=== PATIENT | female | born 1950 | race Caucasian/White ===

== ENCOUNTER 2022-04-05 20:48 | Inpatient (IN) | payer OTHER, SELFPAY ==
[2022-04-05 21:30] VITALS: BP 112/67; PULSE 74; RESP 18; TEMP 36.6; O2SAT 98
--- NOTE | 2022-04-05 23:37 | PC.ADMIT ---
Admitted these 71 year old female per stretcher accompanied by ambulance staff w/ a history of major depression/PTSD who presented w/ uncomplicated sigmoid diverticulitis and major depression w/questionable symptoms of psychosis.Upon arrival at the unit at21:10h pt. is oriented to the unit, room and staff.Pt. signed the CV. At the beginning of admission process, Pt. is alert and oriented to person,date, place and time. Pt. signed the papers.In the middle of admission process pt. is beginning to be impatient,irritable and keep in saying 'I want my mother here, I want to ho home. Patient became suspicious and paranoid. Said, I don't want to sleep alone in my room, I'm claustrophobic.Pt. is easily distracted and confused at times.Pt. skin in warm and intact, no skin tears or bruises noted and no edema noted. Ptient has her own teeth and wears eyeglasses at baseline. Pt. said she is independent in ADL'S and independent in ambulation. pt. denies SI and feels safe in the unit.Pt. also denies pain, said she is not sleeping for days, offered prn Trazodone but pt. refused.pT. Has past medical hx. 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 Paty Borja and GREG Byers inform of admission. Orders placed by Dr Paty Borja.We'll continue to monitor the patient.
[2022-04-06 00:28] VITALS: BMI 21.8
[2022-04-06] MEDS: Acetaminophen 325 MG TABLET 650 MG PO (01:16)
[2022-04-06 07:45] VITALS: BP 119/58; PULSE 73; RESP 16; TEMP 36.7; O2SAT 98
[2022-04-06] MEDS: Cholecalciferol (Vitamin D3) 10 MCG TABLET 20 MCG PO (07:58)
[2022-04-06] MEDS: Aspirin Enteric Coated 81 MG TABLET.DR PO (07:58)
[2022-04-06] MEDS: levoFLOXacin 500 MG TABLET PO (07:59)
[2022-04-06] MEDS: metroNIDAZOLE 500 MG TABLET PO ×3 (07:59→19:55)
[2022-04-06] MEDS: QUEtiapine Fumarate 25 MG TABLET PO ×4 (08:00→19:55)
[2022-04-06] MEDS: OLANZapine 5 MG TABLET PO (08:00)
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
--- NOTE | 2022-04-06 15:08 | HO.PSYCHPN ---
Subjective Subjective Reason For Visit: Depression, PTSD, symptoms of psychosis Diagnostics Vital Signs (24Hr): Vital Signs - 24 hr 04/05/22 21:30 04/06/22 07:45 Temperature 97.8 F 98.0 F Pulse Rate 74 73 Respiratory Rate 18 16 Blood Pressure 112/67 119/58 L Pulse Oximetry 98 98 Oxygen Delivery Method Room Air Room Air BMI result Body Mass Index 21.8 Medications Medications Current Medications Acetaminophen (Acetaminophen 325 Mg Tablet) 650 mg PO Q6H PRN PRN Reason: Headache/Pain Mild Scale (1-3) Last Admin: 04/06/22 01:16 Dose: 650 mg Al Hydroxide/Mg Hydroxide (Magnesium Hydrox/Alum Hydrox 30 Ml Oral.Susp) 30 ml PO Q6H PRN PRN Reason: Heartburn/Nausea Aspirin (Aspirin Enteric Coated 81 Mg Tablet.Dr) 81 mg PO DAILY [facility] Last Admin: 04/06/22 07:58 Dose: 81 mg Atorvastatin Calcium (Atorvastatin Calcium 80 Mg Tablet) 80 mg PO DAILY [facility] Last Admin: 04/06/22 08:00 Dose: Not Given Docusate Sodium (Docusate Sodium 100 Mg Capsule) 100 mg PO BID [facility] Last Admin: 04/06/22 08:01 Dose: Not Given Levofloxacin (Levofloxacin 500 Mg Tablet) 500 mg PO DAILY [facility] Last Admin: 04/06/22 07:59 Dose: 500 mg Lorazepam (Lorazepam 0.5 Mg Tablet) 0.5 mg PO Q6H PRN PRN Reason: Anxiety Magnesium Hydroxide (Milk Of Magnesia 30 Ml Oral.Susp) 30 ml PO DAILY PRN PRN Reason: Constipation Metronidazole (Metronidazole 500 Mg Tablet) 500 mg PO TID [facility] Last Admin: 04/06/22 14:31 Dose: 500 mg Olanzapine (Olanzapine 5 Mg Tablet) 5 mg PO DAILY [facility] Last Admin: 04/06/22 08:00 Dose: 5 mg Polyethylene Glycol (Polyethylene Glycol 3350 17 Gm Powd.Pack) 17 gm PO DAILY [facility] Last Admin: 04/06/22 08:01 Dose: Not Given Quetiapine Fumarate (Quetiapine Fumarate 25 Mg Tablet) 25 mg PO TID [facility] Last Admin: 04/06/22 14:31 Dose: 25 mg Senna (Sennosides 8.6 Mg Tablet) 8.6 mg PO BEDTIME [facility] Trazodone HCl (Trazodone Hcl 50 Mg Tablet) 50 mg PO BEDTIME PRN PRN Reason: Insomnia Vitamin D (Cholecalciferol (Vitamin D3) 10 Mcg Tablet) 20 mcg PO DAILY [facility] Last Admin: 04/06/22 07:58 Dose: 20 mcg Allergies Allergies Allergy/AdvReac Type Severity Reaction Status Date / Time No Known Allergies Allergy Verified 04/05/22 21:25 Assessment & Plan I spent minutes with the patient and/or on the patient floor today, greater than?50% of which was spent counseling/coordinating care. Patient educated on: medication risk/benefits
[2022-04-06 17:12] VITALS: BP 145/68; PULSE 74
--- NOTE | 2022-04-06 17:20 | ECG_ITS ---
Test Reason : Chest Pain Blood Pressure : / mmHG Vent. Rate : 073 BPM Atrial Rate : 073 BPM P-R Int : 178 ms QRS Dur : 068 ms QT Int : 398 ms P-R-T Axes : 073 064 063 degrees QTc Int : 438 ms Normal sinus rhythm Normal ECG No previous ECGs available Referred By: Shannan Kaba Electronically Signed By:QUINCY LEIVA
[2022-04-06 18:00] VITALS: BP 110/50; PULSE 81; RESP 16; TEMP 36.3; O2SAT 98
[2022-04-06] MEDS: LORazepam 0.5 MG TABLET PO (18:20)
[2022-04-06] MEDS: Docusate Sodium 100 MG CAPSULE PO (19:55)
[2022-04-06] MEDS: Sennosides 8.6 MG TABLET PO (19:55)
--- NOTE | 2022-04-06 20:06 | PC.NURSE ---
Late entry for 17:20-- Pt c/o chest pain in late evening. call center operations manager Shannan Kaba notified. STAT EKG ordered and completed. EKG WNL. VSS. call center operations manager ordered lorazepam and Seroquel. Administered and positive effect. Patient reported feeling less anxious and like those pills helped me shortly while after. Patient appears less anxious as evening continued and observed napping and no distress noted.
[2022-04-07] MEDS: QUEtiapine Fumarate 25 MG TABLET PO ×4 (00:37→20:12)
[2022-04-07] MEDS: LORazepam 0.5 MG TABLET PO (00:37)
[2022-04-07 07:00] VITALS: BMI 21.6
[2022-04-07 09:00] VITALS: BP 112/58; PULSE 81; RESP 16; TEMP 36.2; O2SAT 98
[2022-04-07] MEDS: levoFLOXacin 500 MG TABLET PO (09:36)
[2022-04-07] MEDS: Cholecalciferol (Vitamin D3) 10 MCG TABLET 20 MCG PO (09:36)
[2022-04-07] MEDS: metroNIDAZOLE 500 MG TABLET PO ×3 (09:36→20:11)
[2022-04-07] MEDS: Aspirin Enteric Coated 81 MG TABLET.DR PO (09:36)
[2022-04-07] MEDS: OLANZapine 5 MG TABLET PO (09:36)
[2022-04-07] MEDS: Docusate Sodium 100 MG CAPSULE PO ×2 (09:37→20:11)
[2022-04-07] MEDS: Atorvastatin Calcium 80 MG TABLET PO (09:37)
[2022-04-07] MEDS: polyethylene glycoL 3350 17 GM POWD.PACK PO (09:40)
--- NOTE | 2022-04-07 13:42 | P.PNPSI_ITS ---
Subjective Subjective Date of Service: 04/07/22 Reason For Visit: Depression, PTSD, symptoms of psychosis Subjective Notes: Conditional Voluntary Interim History: The nursing staff reported the patient was very somatic and she was complaining of nausea and vomiting and chest pain so she had an EKG last night and it was negative she slept after taking all the PRNs. The social security assessor tried to contact her daughter but she could not find her. She contact her therapist [employer] and the therapist reported that she has been more anxious for the last 3 months with panic attacks and she has called several times 911. She also has lost weight. According to the social security assessor, her family was thinking of placing her eventuality in assisted living facility. On interview the patient denies new symptoms she looks anxious and depressed I offer her antidepressants and she was still slightly reluctant to start any medications, we will start with Paxil 10 mg p.o. daily. We will try to get more collateral information Mental Status Exam Mental Status Exam Patient Appearance: Well Grooomed Patient Orientation: Person and Situation Level of Consciousness: Awake Patient Behavior: Cooperative Mood Description: Constricted Affect Description: Constricted Patient Cognition Impaired: Yes Ability to Follow Directions: Good Speech Pattern: Clear Memory Description: Intact Hallucinations: None Delusions: Not Present Thought Process: Distracted Thought Content: positive for [place] Judgement: Fair Diagnostics Vital Signs (24Hr): Vital Signs - 24 hr 04/06/22 17:12 04/06/22 18:00 04/07/22 09:00 Temperature 97.3 F 97.1 F Pulse Rate 74 81 81 Respiratory Rate 16 16 Blood Pressure 145/68 H 110/50 L 112/58 L Pulse Oximetry 98 98 Oxygen Delivery Method Room Air Room Air BMI result Body Mass Index 21.6 Medications Medications Current Medications Acetaminophen (Acetaminophen 325 Mg Tablet) 650 mg PO Q6H PRN PRN Reason: Headache/Pain Mild Scale (1-3) Last Admin: 04/06/22 01:16 Dose: 650 mg Al Hydroxide/Mg Hydroxide (Magnesium Hydrox/Alum Hydrox 30 Ml Oral.Susp) 30 ml PO Q6H PRN PRN Reason: Heartburn/Nausea Aspirin (Aspirin Enteric Coated 81 Mg Tablet.) 81 mg PO DAILY [facility] Last Admin: 04/07/22 09:36 Dose: 81 mg Atorvastatin Calcium (Atorvastatin Calcium 80 Mg Tablet) 80 mg PO DAILY [facility] Last Admin: 09/15/22 09:37 Dose: 80 mg Docusate Sodium (Docusate Sodium 100 Mg Capsule) 100 mg PO BID [facility] Last Admin: 04/07/22 09:37 Dose: 100 mg Levofloxacin (Levofloxacin 500 Mg Tablet) 500 mg PO DAILY [facility] Last Admin: 04/07/22 09:36 Dose: 500 mg Lorazepam (Lorazepam 0.5 Mg Tablet) 0.5 mg PO Q6H PRN PRN Reason: Anxiety Last Admin: 04/07/22 00:37 Dose: 0.5 mg Magnesium Hydroxide (Milk Of Magnesia 30 Ml Oral.Susp) 30 ml PO DAILY PRN PRN Reason: Constipation Metronidazole (Metronidazole 500 Mg Tablet) 500 mg PO TID [facility] Last Admin: 04/07/22 09:36 Dose: 500 mg Olanzapine (Olanzapine 5 Mg Tablet) 5 mg PO DAILY [facility] Last Admin: 04/07/22 09:36 Dose: 5 mg Polyethylene Glycol (Polyethylene Glycol 3350 17 Gm Powd.Pack) 17 gm PO DAILY [facility] Last Admin: 04/07/22 09:40 Dose: 17 gm Quetiapine Fumarate (Quetiapine Fumarate 25 Mg Tablet) 25 mg PO TID [facility] Last Admin: 04/07/22 09:36 Dose: 25 mg Quetiapine Fumarate (Quetiapine Fumarate 25 Mg Tablet) 25 mg PO Q6H PRN PRN Reason: agitation Last Admin: 04/07/22 00:37 Dose: 25 mg Senna (Sennosides 8.6 Mg Tablet) 8.6 mg PO BEDTIME [facility] Last Admin: 04/06/22 19:55 Dose: 8.6 mg Trazodone HCl (Trazodone Hcl 50 Mg Tablet) 50 mg PO BEDTIME PRN PRN Reason: Insomnia Vitamin D (Cholecalciferol (Vitamin D3) 10 Mcg Tablet) 20 mcg PO DAILY [facility] Last Admin: 04/07/22 09:36 Dose: 20 mcg Allergies Allergies Allergy/AdvReac Type Severity Reaction Status Date / Time No Known Allergies Allergy Verified 04/05/22 21:25 Assessment & Plan Assessment & Plan (1) Major depressive disorder: Status: Acute Code(s): F32.9 - Major depressive disorder, single episode, unspecified (2) Posttraumatic stress disorder: Status: Acute Code(s): F43.10 - Post-traumatic stress disorder, unspecified (3) Dementia: Status: Acute Code(s): F03.90 - Unspecified dementia without behavioral disturbance (4) Delirium: Status: Acute Code(s): R41.0 - Disorientation, unspecified Plan The patient is an elderly female with a past history of major depressive disorder, PTSD and most likely dementia, referred from [facility] after being admitted medically for diverticulitis, currently on antibiotics. She presented with delirium and psychotic symptoms. Plan 1. Gather collateral information. 2. Continue antibiotics such as Levaquin. 3. Continue Seroquel and Zyprexa as prescribed by [facility]. 4. We will consider the addition of an antidepressant as soon as we get records from [facility]. At this moment we will start with Paxil 10 mg p.o. daily I spent ____20__ minutes with the patient and/or on the patient floor today, greater than?50% of which was spent counseling/coordinating care. Reason for contiued inpatient stay Substantial Risk for: inability to function, rapid decompensation and med/psych decompensation
[2022-04-07 18:00] VITALS: PULSE 83; RESP 83; TEMP 36.6; O2SAT 100
[2022-04-07] MEDS: Sennosides 8.6 MG TABLET PO (20:12)
[2022-04-08 07:30] VITALS: BP 108/66; PULSE 71; RESP 16; TEMP 37.1; O2SAT 97
[2022-04-08] MEDS: Cholecalciferol (Vitamin D3) 10 MCG TABLET 20 MCG PO (08:10)
[2022-04-08] MEDS: Aspirin Enteric Coated 81 MG TABLET.DR PO (08:10)
[2022-04-08] MEDS: polyethylene glycoL 3350 17 GM POWD.PACK PO (08:10)
[2022-04-08] MEDS: Atorvastatin Calcium 80 MG TABLET PO (08:11)
[2022-04-08] MEDS: QUEtiapine Fumarate 25 MG TABLET PO ×4 (08:11→22:27)
[2022-04-08] MEDS: OLANZapine 5 MG TABLET PO (08:11)
[2022-04-08] MEDS: PARoxetine HCL 10 MG TABLET PO (08:11)
[2022-04-08] MEDS: levoFLOXacin 500 MG TABLET PO (08:11)
[2022-04-08] MEDS: Docusate Sodium 100 MG CAPSULE PO ×2 (08:11→20:38)
[2022-04-08] MEDS: metroNIDAZOLE 500 MG TABLET PO ×3 (08:11→20:37)
--- NOTE | 2022-04-08 08:26 | HO.PSYCHPN ---
Subjective Subjective Date of Service: 04/08/22 Reason For Visit: Depression, PTSD, symptoms of psychosis Subjective Notes: Conditional Voluntary Interim History: the nursing staff reported the patient has been somatically preoccupied, complaining of chest pain and anxiety. The social science professor reported that she called her daughter and they have been looking for a suitable facility for long-term. She does not have a healthcare proxy but probably there is some records on [facility]. She has refused p.r.n. Ativan. The nursing staff reported that she complained of having food stuck on her ear. According to the occupational therapist her [place] is 14/30 and his Shreyas test is 3.6. Her daughter has called us on wanted to discuss about discharge planning. Mental Status Exam Mental Status Exam Patient Appearance: Well Grooomed Patient Orientation: Person and Situation Level of Consciousness: Awake Patient Behavior: Cooperative Mood Description: Constricted Affect Description: Withdrawn Patient Cognition Impaired: Yes Ability to Follow Directions: Good Speech Pattern: Clear Hallucinations: None Delusions: Not Present Thought Process: Distracted Thought Content: positive for [place] Judgement: Fair Diagnostics Vital Signs (24Hr): Vital Signs - 24 hr 04/07/22 09:00 04/07/22 18:00 Temperature 97.1 F 97.8 F Pulse Rate 81 83 Respiratory Rate 16 83 H Blood Pressure 112/58 L Pulse Oximetry 98 100 Oxygen Delivery Method Room Air Room Air BMI result Body Mass Index 21.6 Medications Medications Current Medications Acetaminophen (Acetaminophen 325 Mg Tablet) 650 mg PO Q6H PRN PRN Reason: Headache/Pain Mild Scale (1-3) Last Admin: 04/06/22 01:16 Dose: 650 mg Al Hydroxide/Mg Hydroxide (Magnesium Hydrox/Alum Hydrox 30 Ml Oral.Susp) 30 ml PO Q6H PRN PRN Reason: Heartburn/Nausea Aspirin (Aspirin Enteric Coated 81 Mg Tablet.) 81 mg PO DAILY [facility] Last Admin: 04/08/22 08:10 Dose: 81 mg Atorvastatin Calcium (Atorvastatin Calcium 80 Mg Tablet) 80 mg PO DAILY [facility] Last Admin: 04/08/22 08:11 Dose: 80 mg Docusate Sodium (Docusate Sodium 100 Mg Capsule) 100 mg PO BID [facility] Last Admin: 04/08/22 08:11 Dose: 100 mg Levofloxacin (Levofloxacin 500 Mg Tablet) 500 mg PO DAILY [facility] Last Admin: 04/08/22 08:11 Dose: 500 mg Lorazepam (Lorazepam 0.5 Mg Tablet) 0.5 mg PO Q6H PRN PRN Reason: Anxiety Last Admin: 04/07/22 00:37 Dose: 0.5 mg Magnesium Hydroxide (Milk Of Magnesia 30 Ml Oral.Susp) 30 ml PO DAILY PRN PRN Reason: Constipation Metronidazole (Metronidazole 500 Mg Tablet) 500 mg PO TID [facility] Last Admin: 04/08/22 08:11 Dose: 500 mg Olanzapine (Olanzapine 5 Mg Tablet) 5 mg PO DAILY [facility] Last Admin: 04/08/22 08:11 Dose: 5 mg Paroxetine HCl (Paroxetine Hcl 10 Mg Tablet) 10 mg PO DAILY [facility] Last Admin: 04/08/22 08:11 Dose: 10 mg Polyethylene Glycol (Polyethylene Glycol 3350 17 Gm Powd.Pack) 17 gm PO DAILY [facility] Last Admin: 04/08/22 08:10 Dose: 17 gm Quetiapine Fumarate (Quetiapine Fumarate 25 Mg Tablet) 25 mg PO TID [facility] Last Admin: 04/08/22 08:11 Dose: 25 mg Quetiapine Fumarate (Quetiapine Fumarate 25 Mg Tablet) 25 mg PO Q6H PRN PRN Reason: agitation Last Admin: 04/07/22 00:37 Dose: 25 mg Senna (Sennosides 8.6 Mg Tablet) 8.6 mg PO BEDTIME [facility] Last Admin: 04/07/22 20:12 Dose: 8.6 mg Trazodone HCl (Trazodone Hcl 50 Mg Tablet) 50 mg PO BEDTIME PRN PRN Reason: Insomnia Vitamin D (Cholecalciferol (Vitamin D3) 10 Mcg Tablet) 20 mcg PO DAILY [facility] Last Admin: 04/08/22 08:10 Dose: 20 mcg Allergies Allergies Allergy/AdvReac Type Severity Reaction Status Date / Time No Known Allergies Allergy Verified 04/05/22 21:25 Assessment & Plan Assessment & Plan (1) Major depressive disorder: Status: Acute Code(s): F32.9 - Major depressive disorder, single episode, unspecified (2) Posttraumatic stress disorder: Status: Acute Code(s): F43.10 - Post-traumatic stress disorder, unspecified (3) Dementia: Status: Acute Code(s): F03.90 - Unspecified dementia without behavioral disturbance (4) Delirium: Status: Acute Code(s): R41.0 - Disorientation, unspecified Plan The patient is an elderly female with a past history of major depressive disorder, PTSD and most likely dementia, referred from [facility] after being admitted medically for diverticulitis, currently on antibiotics. She presented with delirium and psychotic symptoms. Plan 1. Gather collateral information. 2. Continue antibiotics such as Levaquin. 3. Continue Seroquel and Zyprexa as prescribed by [facility]. 4. We will consider the addition of an antidepressant as soon as we get records from [facility]. At this moment we will start with Paxil 10 mg p.o. daily I spent __20____ minutes with the patient and/or on the patient floor today, greater than?50% of which was spent counseling/coordinating care. Reason for contiued inpatient stay Substantial Risk for: inability to function, rapid decompensation and med/psych decompensation
[2022-04-08 09:15] VITALS: BP 122/59; PULSE 82; RESP 18; TEMP 36.3; O2SAT 98
[2022-04-08] MEDS: LORazepam 0.5 MG TABLET PO (09:27)
[2022-04-08 18:00] VITALS: BP 130/63; PULSE 83; RESP 16; TEMP 37.1; O2SAT 98
[2022-04-08] MEDS: Milk of Magnesia 30 ML ORAL.SUSP PO (18:33)
[2022-04-08] MEDS: Sennosides 8.6 MG TABLET PO (20:37)
[2022-04-08] MEDS: traZODone HCL 50 MG TABLET PO ×2 (20:38→22:26)
[2022-04-09 06:00] VITALS: BP 107/55; PULSE 60; RESP 17; TEMP 35.9
[2022-04-09] MEDS: levoFLOXacin 500 MG TABLET PO (09:04)
[2022-04-09] MEDS: Cholecalciferol (Vitamin D3) 10 MCG TABLET 20 MCG PO (09:04)
[2022-04-09] MEDS: OLANZapine 5 MG TABLET PO (09:04)
[2022-04-09] MEDS: Atorvastatin Calcium 80 MG TABLET PO (09:04)
[2022-04-09] MEDS: Docusate Sodium 100 MG CAPSULE PO ×2 (09:04→20:02)
[2022-04-09] MEDS: Aspirin Enteric Coated 81 MG TABLET.DR PO (09:05)
[2022-04-09] MEDS: QUEtiapine Fumarate 25 MG TABLET PO ×3 (09:05→19:59)
[2022-04-09] MEDS: metroNIDAZOLE 500 MG TABLET PO ×3 (09:05→19:59)
[2022-04-09] MEDS: PARoxetine HCL 10 MG TABLET PO (09:05)
--- NOTE | 2022-04-09 13:09 | HO.PSYCHPN ---
Subjective Subjective Date of Service: 04/09/22 Reason For Visit: Depression, PTSD, symptoms of psychosis Subjective Notes: Conditional Voluntary Interim History: Pt reports her daughter concerned about her taking statin. She asks this residential mortgage underwriter what this medications is for, educated on effects on cholesterol. Pt reports sleeping and eating well. She reports mood okay. She denies SI/HI. She is social with peers. She does tendency to ask several times for support from staff without clear reason. Medication Compliance: Yes Side effects from medications: No Mental Status Exam Mental Status Exam Narrative: Appearance: casually groomed, fair hygiene in NAD Behavior:cooperative, overly friendly psychomotor: no agitation or retardation noted Speech: clear, normal rate/rhythm, volume, spontaneous Thought process: tangential, no loose associations Thought content:no signs of psychosis/delusions, feeling anxious about where she will go next Mood: good Affect: somewhat anxious but congruent SI:denies HI:denies VH/AH:none Delusions:none Insight/judgment:impaired x 2. Memory/cog: alert, oriented to person, place Diagnostics Vital Signs (24Hr): Vital Signs - 24 hr 04/09/22 18:00 Temperature 97.4 F Pulse Rate 73 Respiratory Rate 16 Blood Pressure 107/58 L Pulse Oximetry 97 Oxygen Delivery Method Room Air BMI result Body Mass Index 21.6 Medications Medications Current Medications Acetaminophen (Acetaminophen 325 Mg Tablet) 650 mg PO Q6H PRN PRN Reason: Headache/Pain Mild Scale (1-3) Last Admin: 04/06/22 01:16 Dose: 650 mg Al Hydroxide/Mg Hydroxide (Magnesium Hydrox/Alum Hydrox 30 Ml Oral.Susp) 30 ml PO Q6H PRN PRN Reason: Heartburn/Nausea Aspirin (Aspirin Enteric Coated 81 Mg Tablet.) 81 mg PO DAILY [facility] Last Admin: 04/10/22 09:00 Dose: 81 mg Atorvastatin Calcium (Atorvastatin Calcium 80 Mg Tablet) 80 mg PO DAILY [facility] Last Admin: 04/10/22 09:01 Dose: 80 mg Docusate Sodium (Docusate Sodium 100 Mg Capsule) 100 mg PO BID [facility] Last Admin: 04/10/22 09:00 Dose: 100 mg Levofloxacin (Levofloxacin 500 Mg Tablet) 500 mg PO DAILY [facility] Last Admin: 04/10/22 09:00 Dose: 500 mg Magnesium Hydroxide (Milk Of Magnesia 30 Ml Oral.Susp) 30 ml PO DAILY PRN PRN Reason: Constipation Last Admin: 04/08/22 18:33 Dose: 30 ml Metronidazole (Metronidazole 500 Mg Tablet) 500 mg PO TID [facility] Last Admin: 04/10/22 09:00 Dose: 500 mg Olanzapine (Olanzapine 5 Mg Tablet) 5 mg PO DAILY [facility] Last Admin: 04/10/22 09:00 Dose: 5 mg Paroxetine HCl (Paroxetine Hcl 10 Mg Tablet) 10 mg PO DAILY [facility] Last Admin: 04/10/22 09:00 Dose: 10 mg Polyethylene Glycol (Polyethylene Glycol 3350 17 Gm Powd.Pack) 17 gm PO DAILY [facility] Last Admin: 04/09/22 09:21 Dose: Not Given Quetiapine Fumarate (Quetiapine Fumarate 25 Mg Tablet) 25 mg PO TID [facility] Last Admin: 04/10/22 09:00 Dose: 25 mg Quetiapine Fumarate (Quetiapine Fumarate 25 Mg Tablet) 25 mg PO Q6H PRN PRN Reason: agitation Last Admin: 04/08/22 22:27 Dose: 25 mg Senna (Sennosides 8.6 Mg Tablet) 8.6 mg PO BEDTIME [facility] Last Admin: 04/09/22 19:59 Dose: 8.6 mg Trazodone HCl (Trazodone Hcl 50 Mg Tablet) 50 mg PO BEDTIME PRN PRN Reason: Insomnia Last Admin: 04/09/22 20:00 Dose: 50 mg Vitamin D (Cholecalciferol (Vitamin D3) 10 Mcg Tablet) 20 mcg PO DAILY [facility] Last Admin: 04/10/22 09:00 Dose: 20 mcg Allergies Allergies Allergy/AdvReac Type Severity Reaction Status Date / Time No Known Allergies Allergy Verified 04/05/22 21:25 Assessment & Plan Assessment & Plan (1) Dementia: Status: Acute Code(s): F03.90 - Unspecified dementia without behavioral disturbance (2) Posttraumatic stress disorder: Status: Acute Code(s): F43.10 - Post-traumatic stress disorder, unspecified Plan 04/09 continue current tx. I spent minutes with the patient and/or on the patient floor today, greater than?50% of which was spent counseling/coordinating care. Reason for contiued inpatient stay Substantial Risk for: inability to function
--- NOTE | 2022-04-09 14:17 | P.CNHOSGPS_ITS ---
History of Present Illness Data of Consult Service Date: 04/09/22 Requesting physician: Arya Hernandez Primary Care Provider: Remedios Gallardo MD [facility] Routine medical exam. No acute issues Review of Systems Review of Systems: Denies chest pain Denies shortness of breath Denies nausea vomiting diarrhea Denies fever chills PMFSH Social History Household Members: None Housing: Apartment Do you presently have visiting nurse or other home services: No Patient Tobacco Use Status: Never used Tobacco e-Cigarette/Vaping Use: Never Used Use of substances other than those prescribed or required for medical reasons: No Currently Displaying Signs/Symptoms of Drug Intoxication Withdrawal: No Any prior treatment program specific to substance use: No Have you been hit, kicked, punched, or otherwise hurt by someone within the past year? If so, by whom?: No Do you feel safe in your current relationship?: Yes Is there a partner from a previous relationship who is making you feel unsafe now?: No Advance Directives: No Advance Directives Information Provided: No Do you have thoughts of harming others: None Do you have a plan to hurt others: No Plan Recently lost weight without trying: Yes How much weight loss: Unsure Eating poorly because of decreased appetite: No Nutrition screen score: 4 Nutrition Risks: No Nutritional Risk Patient : No : No Poor oral hygiene: No service: No Sexual orientation: Straight/Heterosexual Meds Allergies Allergy/AdvReac Type Severity Reaction Status Date / Time No Known Allergies Allergy Verified 04/05/22 21:25 Active Medications: Current Medications Acetaminophen (Acetaminophen 325 Mg Tablet) 650 mg PO Q6H PRN PRN Reason: Headache/Pain Mild Scale (1-3) Last Admin: 04/06/22 01:16 Dose: 650 mg Al Hydroxide/Mg Hydroxide (Magnesium Hydrox/Alum Hydrox 30 Ml Oral.Susp) 30 ml PO Q6H PRN PRN Reason: Heartburn/Nausea Aspirin (Aspirin Enteric Coated 81 Mg Tablet.Dr) 81 mg PO DAILY [facility] Last Admin: 04/09/22 09:05 Dose: 81 mg Atorvastatin Calcium (Atorvastatin Calcium 80 Mg Tablet) 80 mg PO DAILY [facility] Last Admin: 04/09/22 09:04 Dose: 80 mg Docusate Sodium (Docusate Sodium 100 Mg Capsule) 100 mg PO BID [facility] Last Admin: 04/09/22 09:04 Dose: 100 mg Levofloxacin (Levofloxacin 500 Mg Tablet) 500 mg PO DAILY [facility] Last Admin: 04/09/22 09:04 Dose: 500 mg Magnesium Hydroxide (Milk Of Magnesia 30 Ml Oral.Susp) 30 ml PO DAILY PRN PRN Reason: Constipation Last Admin: 04/08/22 18:33 Dose: 30 ml Metronidazole (Metronidazole 500 Mg Tablet) 500 mg PO TID [facility] Last Admin: 04/09/22 09:05 Dose: 500 mg Olanzapine (Olanzapine 5 Mg Tablet) 5 mg PO DAILY [facility] Last Admin: 04/09/22 09:04 Dose: 5 mg Paroxetine HCl (Paroxetine Hcl 10 Mg Tablet) 10 mg PO DAILY [facility] Last Admin: 04/09/22 09:05 Dose: 10 mg Polyethylene Glycol (Polyethylene Glycol 3350 17 Gm Powd.Pack) 17 gm PO DAILY [facility] Last Admin: 04/09/22 09:21 Dose: Not Given Quetiapine Fumarate (Quetiapine Fumarate 25 Mg Tablet) 25 mg PO TID [facility] Last Admin: 04/09/22 09:05 Dose: 25 mg Quetiapine Fumarate (Quetiapine Fumarate 25 Mg Tablet) 25 mg PO Q6H PRN PRN Reason: agitation Last Admin: 04/08/22 22:27 Dose: 25 mg Senna (Sennosides 8.6 Mg Tablet) 8.6 mg PO BEDTIME [facility] Last Admin: 04/08/22 20:37 Dose: 8.6 mg Trazodone HCl (Trazodone Hcl 50 Mg Tablet) 50 mg PO BEDTIME PRN PRN Reason: Insomnia Last Admin: 04/08/22 22:26 Dose: 50 mg Vitamin D (Cholecalciferol (Vitamin D3) 10 Mcg Tablet) 20 mcg PO DAILY [facility] Last Admin: 04/09/22 09:04 Dose: 20 mcg Home Medications Medication Instructions Recorded Confirmed Last Taken Type aspirin 81 mg capsule,delayed 81 mg PO DAILY 04/05/22 04/05/22 Unknown History release cholecalciferol (vitamin D3) 800 unit PO DAILY 04/05/22 04/05/22 Unknown History ciprofloxacin HCl 500 mg PO BIDWM 04/05/22 04/05/22 04/05/22 History docusate sodium 100 mg PO BID 04/05/22 04/05/22 04/04/22 History lorazepam 0.5 mg PO Q6H PRN Anxiety 04/05/22 04/05/22 04/05/22 History metronidazole 500 mg PO Q8H 04/05/22 04/05/22 04/05/22 History olanzapine 5 mg tablet (Zyprexa) 5 mg PO DAILY 04/05/22 04/05/22 04/05/22 History polyethylene glycol 3350 17 gram 17 g PO DAILY 04/05/22 04/05/22 04/03/22 History oral powder packet (Miralax) quetiapine 25 mg tablet (Seroquel) 25 mg PO TID 04/05/22 04/05/22 04/05/22 History rosuvastatin 20 mg tablet (Crestor) 20 mg PO DAILY 04/05/22 04/05/22 Unknown History senna 8.6 mg PO BEDTIME 04/05/22 04/05/22 04/04/22 History Assessment and Plan (1) Physical exam, routine: Status: Acute Plan Routine physical examination no acute medical issues at this time Physical Exam Vital Signs: Last Vital Signs Temp 96.7 F L 04/09/22 06:00 Pulse 60 04/09/22 06:00 Resp 17 04/09/22 06:00 BP 107/55 L 04/09/22 06:00 Pulse Ox 98 04/08/22 18:00 O2 Del Method 04/09/22 06:00 BMI result Body Mass Index 21.6 Const Other: Awake alert no acute distress Resp Other: Clear to auscultation bilaterally no rales rhonchi wheezes Cardio Other: No S4; positive S1-S2; no S3 murmurs rubs gallops GI Other: Soft nontender nondistended normoactive bowel sounds Neuro Other: Cranial nerves 2-12 grossly intact as tested. Motor is 5/5 all extremities. S ensation is intact. Gait steady Cranial nerves: Yes CN's II-XII intact bilaterally Extrem Other: No edema bilaterally
[2022-04-09 18:00] VITALS: BP 107/58; PULSE 73; RESP 16; TEMP 36.3; O2SAT 97
[2022-04-09] MEDS: Sennosides 8.6 MG TABLET PO (19:59)
[2022-04-09] MEDS: traZODone HCL 50 MG TABLET PO (20:00)
[2022-04-10 06:00] VITALS: BP 101/57; PULSE 67; RESP 16; TEMP 35.9; O2SAT 98
[2022-04-10] MEDS: PARoxetine HCL 10 MG TABLET PO (09:00)
[2022-04-10] MEDS: QUEtiapine Fumarate 25 MG TABLET PO ×3 (09:00→20:15)
[2022-04-10] MEDS: Aspirin Enteric Coated 81 MG TABLET.DR PO (09:00)
[2022-04-10] MEDS: OLANZapine 5 MG TABLET PO (09:00)
[2022-04-10] MEDS: Docusate Sodium 100 MG CAPSULE PO ×2 (09:00→20:15)
[2022-04-10] MEDS: Cholecalciferol (Vitamin D3) 10 MCG TABLET 20 MCG PO (09:00)
[2022-04-10] MEDS: metroNIDAZOLE 500 MG TABLET PO ×3 (09:00→20:15)
[2022-04-10] MEDS: levoFLOXacin 500 MG TABLET PO (09:00)
[2022-04-10] MEDS: Atorvastatin Calcium 80 MG TABLET PO (09:01)
--- NOTE | 2022-04-10 10:14 | HO.PSYCHPN ---
Subjective Subjective Date of Service: 04/10/22 Reason For Visit: Depression, PTSD, symptoms of psychosis Subjective Notes: Conditional Voluntary Interim History: Per nursing, pt slept through the night. No behavioral concerns. Pt reports doing well, no physical complaints. She reports mood okay. She denies SI/HI. She is social with peers. Medication Compliance: Yes Review of Systems Review of Systems Denies chest pain Denies shortness of breath Denies nausea vomiting diarrhea Denies fever chills Yes all other systems are reviewed and are negative Mental Status Exam Mental Status Exam Narrative: Appearance: casually groomed, fair hygiene in NAD Behavior:cooperative, overly friendly psychomotor: no agitation or retardation noted Speech: clear, normal rate/rhythm, volume, spontaneous Thought process: tangential, no loose associations Thought content:no signs of psychosis/delusions, feeling anxious about where she will go next Mood: good Affect: somewhat anxious but congruent SI:denies HI:denies VH/AH:none Delusions:none Insight/judgment:impaired x 2. Memory/cog: alert, oriented to person, place Diagnostics Vital Signs (24Hr): Vital Signs - 24 hr 04/09/22 18:00 Temperature 97.4 F Pulse Rate 73 Respiratory Rate 16 Blood Pressure 107/58 L Pulse Oximetry 97 Oxygen Delivery Method Room Air BMI result Body Mass Index 21.6 Medications Medications Current Medications Acetaminophen (Acetaminophen 325 Mg Tablet) 650 mg PO Q6H PRN PRN Reason: Headache/Pain Mild Scale (1-3) Last Admin: 04/06/22 01:16 Dose: 650 mg Al Hydroxide/Mg Hydroxide (Magnesium Hydrox/Alum Hydrox 30 Ml Oral.Susp) 30 ml PO Q6H PRN PRN Reason: Heartburn/Nausea Aspirin (Aspirin Enteric Coated 81 Mg Tablet.Dr) 81 mg PO DAILY [facility] Last Admin: 04/10/22 09:00 Dose: 81 mg Atorvastatin Calcium (Atorvastatin Calcium 80 Mg Tablet) 80 mg PO DAILY [facility] Last Admin: 04/10/22 09:01 Dose: 80 mg Docusate Sodium (Docusate Sodium 100 Mg Capsule) 100 mg PO BID [facility] Last Admin: 04/10/22 09:00 Dose: 100 mg Levofloxacin (Levofloxacin 500 Mg Tablet) 500 mg PO DAILY [facility] Last Admin: 04/10/22 09:00 Dose: 500 mg Magnesium Hydroxide (Milk Of Magnesia 30 Ml Oral.Susp) 30 ml PO DAILY PRN PRN Reason: Constipation Last Admin: 04/08/22 18:33 Dose: 30 ml Metronidazole (Metronidazole 500 Mg Tablet) 500 mg PO TID [facility] Last Admin: 04/10/22 09:00 Dose: 500 mg Olanzapine (Olanzapine 5 Mg Tablet) 5 mg PO DAILY [facility] Last Admin: 04/10/22 09:00 Dose: 5 mg Paroxetine HCl (Paroxetine Hcl 10 Mg Tablet) 10 mg PO DAILY [facility] Last Admin: 04/10/22 09:00 Dose: 10 mg Polyethylene Glycol (Polyethylene Glycol 3350 17 Gm Powd.Pack) 17 gm PO DAILY [facility] Last Admin: 04/09/22 09:21 Dose: Not Given Quetiapine Fumarate (Quetiapine Fumarate 25 Mg Tablet) 25 mg PO TID [facility] Last Admin: 04/10/22 09:00 Dose: 25 mg Quetiapine Fumarate (Quetiapine Fumarate 25 Mg Tablet) 25 mg PO Q6H PRN PRN Reason: agitation Last Admin: 04/08/22 22:27 Dose: 25 mg Senna (Sennosides 8.6 Mg Tablet) 8.6 mg PO BEDTIME [facility] Last Admin: 04/09/22 19:59 Dose: 8.6 mg Trazodone HCl (Trazodone Hcl 50 Mg Tablet) 50 mg PO BEDTIME PRN PRN Reason: Insomnia Last Admin: 04/09/22 20:00 Dose: 50 mg Vitamin D (Cholecalciferol (Vitamin D3) 10 Mcg Tablet) 20 mcg PO DAILY [facility] Last Admin: 04/10/22 09:00 Dose: 20 mcg Allergies Allergies Allergy/AdvReac Type Severity Reaction Status Date / Time No Known Allergies Allergy Verified 04/05/22 21:25 Assessment & Plan Assessment & Plan (1) Dementia: Status: Acute Code(s): F03.90 - Unspecified dementia without behavioral disturbance (2) Posttraumatic stress disorder: Status: Acute Code(s): F43.10 - Post-traumatic stress disorder, unspecified Plan 04/09 continue current tx. 04/10 continue current tx. I spent minutes with the patient and/or on the patient floor today, greater than?50% of which was spent counseling/coordinating care. Reason for contiued inpatient stay Substantial Risk for: inability to function
[2022-04-10 18:00] VITALS: BP 126/60; PULSE 68; RESP 16; TEMP 36.2; O2SAT 98
[2022-04-10] MEDS: Sennosides 8.6 MG TABLET PO (20:15)
[2022-04-11 06:00] VITALS: BP 118/58; PULSE 78; RESP 14; TEMP 36.2; O2SAT 92
[2022-04-11] MEDS: Aspirin Enteric Coated 81 MG TABLET.DR PO (08:05)
[2022-04-11] MEDS: polyethylene glycoL 3350 17 GM POWD.PACK PO (08:06)
[2022-04-11] MEDS: PARoxetine HCL 10 MG TABLET PO (08:06)
[2022-04-11] MEDS: Atorvastatin Calcium 80 MG TABLET PO (08:07)
[2022-04-11] MEDS: metroNIDAZOLE 500 MG TABLET PO ×3 (08:07→20:10)
[2022-04-11] MEDS: OLANZapine 5 MG TABLET PO (08:07)
[2022-04-11] MEDS: Docusate Sodium 100 MG CAPSULE PO ×2 (08:07→20:10)
[2022-04-11] MEDS: QUEtiapine Fumarate 25 MG TABLET PO ×3 (08:07→20:10)
[2022-04-11] MEDS: Cholecalciferol (Vitamin D3) 10 MCG TABLET 20 MCG PO (08:07)
[2022-04-11] MEDS: levoFLOXacin 500 MG TABLET PO (08:08)
--- NOTE | 2022-04-11 15:35 | P.PNPSI_ITS ---
Subjective Subjective Date of Service: 04/11/22 Reason For Visit: Depression, PTSD, symptoms of psychosis Subjective Notes: Conditional Voluntary Interim History: The nursing staff reported the patient has been very somatically focused still on antibiotics. It seems that she is very attention seeking and needs boundaries. Her daughter talked today and call min explaining about her recent history. She was admitted 4 times in the last months, to [facility], to [facility] and [facility]. Also she has several admissions into the ED due to panic attacks. I explained to the daughter that the standard of care is to use an SSRI and will start this right now. On interview she denies new symptoms she states that she is very anxious. We will increase Paxil up to 20 mg today Mental Status Exam Mental Status Exam Patient Appearance: Well Grooomed Patient Orientation: Person and Situation Level of Consciousness: Awake Patient Behavior: Cooperative Mood Description: Calm Affect Description: Constricted Patient Cognition Impaired: Yes Ability to Follow Directions: Good Speech Pattern: Clear Hallucinations: None Delusions: Not Present Thought Process: Distracted and Evasive Thought Content: positive for [place], positive for Obsessional Thoughts and positive for Poverty of Content Judgement: Fair Diagnostics Vital Signs (24Hr): Vital Signs - 24 hr 04/10/22 18:00 04/11/22 06:00 Temperature 97.1 F 97.2 F Pulse Rate 68 78 Respiratory Rate 16 14 Blood Pressure 126/60 118/58 L Pulse Oximetry 98 92 Oxygen Delivery Method Room Air Room Air BMI result Body Mass Index 21.6 Medications Medications Current Medications Acetaminophen (Acetaminophen 325 Mg Tablet) 650 mg PO Q6H PRN PRN Reason: Headache/Pain Mild Scale (1-3) Last Admin: 04/06/22 01:16 Dose: 650 mg Al Hydroxide/Mg Hydroxide (Magnesium Hydrox/Alum Hydrox 30 Ml Oral.Susp) 30 ml PO Q6H PRN PRN Reason: Heartburn/Nausea Aspirin (Aspirin Enteric Coated 81 Mg Tablet.) 81 mg PO DAILY [facility] Last Admin: 04/11/22 08:05 Dose: 81 mg Atorvastatin Calcium (Atorvastatin Calcium 80 Mg Tablet) 80 mg PO DAILY [facility] Last Admin: 04/11/22 08:07 Dose: 80 mg Docusate Sodium (Docusate Sodium 100 Mg Capsule) 100 mg PO BID [facility] Last Admin: 04/11/22 08:07 Dose: 100 mg Donepezil HCl (Donepezil Hcl 5 Mg Tablet) 5 mg PO BEDTIME [facility] Levofloxacin (Levofloxacin 500 Mg Tablet) 500 mg PO DAILY [facility] Last Admin: 04/11/22 08:08 Dose: 500 mg Magnesium Hydroxide (Milk Of Magnesia 30 Ml Oral.Susp) 30 ml PO DAILY PRN PRN Reason: Constipation Last Admin: 04/08/22 18:33 Dose: 30 ml Metronidazole (Metronidazole 500 Mg Tablet) 500 mg PO TID [facility] Last Admin: 04/11/22 08:07 Dose: 500 mg Olanzapine (Olanzapine 5 Mg Tablet) 5 mg PO DAILY [facility] Last Admin: 04/11/22 08:07 Dose: 5 mg Paroxetine HCl (Paroxetine Hcl 20 Mg Tablet) 20 mg PO DAILY [facility] Polyethylene Glycol (Polyethylene Glycol 3350 17 Gm Powd.Pack) 17 gm PO DAILY [facility] Last Admin: 04/11/22 08:06 Dose: 17 gm Quetiapine Fumarate (Quetiapine Fumarate 25 Mg Tablet) 25 mg PO TID [facility] Last Admin: 04/11/22 08:07 Dose: 25 mg Quetiapine Fumarate (Quetiapine Fumarate 25 Mg Tablet) 25 mg PO Q6H PRN PRN Reason: agitation Last Admin: 04/08/22 22:27 Dose: 25 mg Senna (Sennosides 8.6 Mg Tablet) 8.6 mg PO BEDTIME [facility] Last Admin: 04/10/22 20:15 Dose: 8.6 mg Trazodone HCl (Trazodone Hcl 50 Mg Tablet) 50 mg PO BEDTIME PRN PRN Reason: Insomnia Last Admin: 04/09/22 20:00 Dose: 50 mg Vitamin D (Cholecalciferol (Vitamin D3) 10 Mcg Tablet) 20 mcg PO DAILY [facility] Last Admin: 04/11/22 08:07 Dose: 20 mcg Allergies Allergies Allergy/AdvReac Type Severity Reaction Status Date / Time No Known Allergies Allergy Verified 04/05/22 21:25 Assessment & Plan Assessment & Plan (1) Dementia: Status: Acute Code(s): F03.90 - Unspecified dementia without behavioral disturbance (2) Posttraumatic stress disorder: Status: Acute Code(s): F43.10 - Post-traumatic stress disorder, unspecified Plan continue with Paxil up to 20 mg today I spent ___20___ minutes with the patient and/or on the patient floor today, greater than?50% of which was spent counseling/coordinating care. Reason for contiued inpatient stay Substantial Risk for: inability to function, rapid decompensation and med/psych decompensation
[2022-04-11 18:00] VITALS: BP 117/58; PULSE 81; RESP 18; TEMP 36.1; O2SAT 98
[2022-04-11] MEDS: Acetaminophen 325 MG TABLET 650 MG PO (20:10)
[2022-04-11] MEDS: Donepezil HCl 5 MG TABLET PO (20:10)
[2022-04-11] MEDS: Sennosides 8.6 MG TABLET PO (20:10)
[2022-04-11] MEDS: traZODone HCL 50 MG TABLET PO (21:57)
[2022-04-12 06:00] VITALS: BP 134/59; PULSE 72; RESP 14; TEMP 36.1; O2SAT 96
[2022-04-12] MEDS: Docusate Sodium 100 MG CAPSULE PO ×2 (10:04→20:42)
[2022-04-12] MEDS: Cholecalciferol (Vitamin D3) 10 MCG TABLET 20 MCG PO (10:04)
[2022-04-12] MEDS: levoFLOXacin 500 MG TABLET PO (10:04)
[2022-04-12] MEDS: QUEtiapine Fumarate 25 MG TABLET PO ×4 (10:04→20:43)
[2022-04-12] MEDS: polyethylene glycoL 3350 17 GM POWD.PACK PO (10:04)
[2022-04-12] MEDS: OLANZapine 5 MG TABLET PO (10:04)
[2022-04-12] MEDS: Aspirin Enteric Coated 81 MG TABLET.DR PO (10:04)
[2022-04-12] MEDS: PARoxetine HCL 20 MG TABLET PO (10:05)
[2022-04-12] MEDS: metroNIDAZOLE 500 MG TABLET PO ×3 (10:05→20:43)
[2022-04-12] MEDS: Atorvastatin Calcium 80 MG TABLET PO (10:05)
--- NOTE | 2022-04-12 11:04 | P.PNPSI_ITS ---
Subjective Subjective Date of Service: 04/12/22 Reason For Visit: Depression, PTSD, symptoms of psychosis Subjective Notes: Conditional Voluntary Interim History: The nursing staff reported the patient remains somatically focused, attention seeking but easily redirected by distractions. No side effects with the current treatment. On interview the patient denies new symptoms she states that she still anxious. She was accusing staff regarding her diet but it seems that she forgets what she has ordered for meals. Nursing aware and they will make a copy of her food orders. Mental Status Exam Mental Status Exam Patient Appearance: Well Grooomed Patient Orientation: Person Level of Consciousness: Awake Patient Behavior: Cooperative Mood Description: Calm Affect Description: Constricted Patient Cognition Impaired: Yes Ability to Follow Directions: Good Speech Pattern: Clear Hallucinations: None Delusions: Not Present Thought Process: Distracted and Slowed Thinking Thought Content: positive for [place] Judgement: Fair Diagnostics Vital Signs (24Hr): Vital Signs - 24 hr 04/11/22 18:00 Temperature 97 F Pulse Rate 81 Respiratory Rate 18 Blood Pressure 117/58 L Pulse Oximetry 98 Oxygen Delivery Method Room Air BMI result Body Mass Index 21.6 Medications Medications Current Medications Acetaminophen (Acetaminophen 325 Mg Tablet) 650 mg PO Q6H PRN PRN Reason: Headache/Pain Mild Scale (1-3) Last Admin: 04/11/22 20:10 Dose: 650 mg Al Hydroxide/Mg Hydroxide (Magnesium Hydrox/Alum Hydrox 30 Ml Oral.Susp) 30 ml PO Q6H PRN PRN Reason: Heartburn/Nausea Aspirin (Aspirin Enteric Coated 81 Mg Tablet.) 81 mg PO DAILY [facility] Last Admin: 04/12/22 10:04 Dose: 81 mg Atorvastatin Calcium (Atorvastatin Calcium 80 Mg Tablet) 80 mg PO DAILY [facility] Last Admin: 04/12/22 10:05 Dose: 80 mg Docusate Sodium (Docusate Sodium 100 Mg Capsule) 100 mg PO BID [facility] Last Admin: 04/12/22 10:04 Dose: 100 mg Donepezil HCl (Donepezil Hcl 5 Mg Tablet) 5 mg PO BEDTIME [facility] Last Admin: 04/11/22 20:10 Dose: 5 mg Levofloxacin (Levofloxacin 500 Mg Tablet) 500 mg PO DAILY [facility] Last Admin: 04/12/22 10:04 Dose: 500 mg Magnesium Hydroxide (Milk Of Magnesia 30 Ml Oral.Susp) 30 ml PO DAILY PRN PRN Reason: Constipation Last Admin: 04/08/22 18:33 Dose: 30 ml Metronidazole (Metronidazole 500 Mg Tablet) 500 mg PO TID [facility] Last Admin: 04/12/22 10:05 Dose: 500 mg Olanzapine (Olanzapine 5 Mg Tablet) 5 mg PO DAILY [facility] Last Admin: 04/12/22 10:04 Dose: 5 mg Paroxetine HCl (Paroxetine Hcl 20 Mg Tablet) 20 mg PO DAILY [facility] Last Admin: 04/12/22 10:05 Dose: 20 mg Polyethylene Glycol (Polyethylene Glycol 3350 17 Gm Powd.Pack) 17 gm PO DAILY [facility] Last Admin: 04/12/22 10:04 Dose: 17 gm Quetiapine Fumarate (Quetiapine Fumarate 25 Mg Tablet) 25 mg PO TID [facility] Last Admin: 04/12/22 10:04 Dose: 25 mg Quetiapine Fumarate (Quetiapine Fumarate 25 Mg Tablet) 25 mg PO Q6H PRN PRN Reason: agitation Last Admin: 04/08/22 22:27 Dose: 25 mg Senna (Sennosides 8.6 Mg Tablet) 8.6 mg PO BEDTIME [facility] Last Admin: 04/11/22 20:10 Dose: 8.6 mg Trazodone HCl (Trazodone Hcl 50 Mg Tablet) 50 mg PO BEDTIME PRN PRN Reason: Insomnia Last Admin: 04/11/22 21:57 Dose: 50 mg Vitamin D (Cholecalciferol (Vitamin D3) 10 Mcg Tablet) 20 mcg PO DAILY [facility] Last Admin: 04/12/22 10:04 Dose: 20 mcg Allergies Allergies Allergy/AdvReac Type Severity Reaction Status Date / Time No Known Allergies Allergy Verified 04/05/22 21:25 Assessment & Plan Assessment & Plan (1) Dementia: Status: Acute Code(s): F03.90 - Unspecified dementia without behavioral disturbance (2) Posttraumatic stress disorder: Status: Acute Code(s): F43.10 - Post-traumatic stress disorder, unspecified Plan The patient is a 71-year-old female with a long history of posttraumatic stress disorder, depression and panic attacks, now with a new diagnosis of dementia. She was referred to the emergency room after she disclosed passive suicidal thoughts and disorganized behavior. Plan 1. Continue with the same treatment right now, to not discontinue Seroquel or Zyprexa for the next day. 2. Continue with Paxil up to 20 mg today I spent ___20___ minutes with the patient and/or on the patient floor today, greater than?50% of which was spent counseling/coordinating care. Reason for contiued inpatient stay Substantial Risk for: inability to function, rapid decompensation and med/psych decompensation
[2022-04-12 18:00] VITALS: BP 113/56; PULSE 65; RESP 16; TEMP 36.6; O2SAT 97
[2022-04-12] MEDS: Donepezil HCl 5 MG TABLET PO (20:42)
[2022-04-12] MEDS: Sennosides 8.6 MG TABLET PO (20:43)
[2022-04-13] MEDS: Cholecalciferol (Vitamin D3) 10 MCG TABLET 20 MCG PO (08:03)
[2022-04-13] MEDS: OLANZapine 5 MG TABLET PO (08:03)
[2022-04-13] MEDS: metroNIDAZOLE 500 MG TABLET PO ×3 (08:03→20:02)
[2022-04-13] MEDS: Atorvastatin Calcium 80 MG TABLET PO (08:04)
[2022-04-13] MEDS: PARoxetine HCL 20 MG TABLET PO (08:04)
[2022-04-13] MEDS: levoFLOXacin 500 MG TABLET PO (08:04)
[2022-04-13] MEDS: Docusate Sodium 100 MG CAPSULE PO ×2 (08:04→20:01)
[2022-04-13] MEDS: Aspirin Enteric Coated 81 MG TABLET.DR PO (08:04)
[2022-04-13] MEDS: QUEtiapine Fumarate 25 MG TABLET PO ×3 (08:04→20:02)
[2022-04-13] MEDS: polyethylene glycoL 3350 17 GM POWD.PACK PO (08:05)
[2022-04-13 08:11] VITALS: BP 120/70; PULSE 65; RESP 17; TEMP 35.7; O2SAT 97
--- NOTE | 2022-04-13 09:50 | HO.PSYCHPN ---
Subjective Subjective Date of Service: 04/13/22 Reason For Visit: Depression, PTSD, symptoms of psychosis Subjective Notes: Conditional Voluntary Interim History: The nursing staff reported the patient has been engage in groups, apparently she was complain of poor sleep but the nursing staff reported that she slept 8 hours. On interview the patient reports that she still anxious but less dysphoric. Mental Status Exam Mental Status Exam Patient Appearance: Well Grooomed Patient Orientation: Person and Situation Level of Consciousness: Awake Patient Behavior: Cooperative Mood Description: Calm Affect Description: Constricted Patient Cognition Impaired: Yes Ability to Follow Directions: Good Speech Pattern: Clear Hallucinations: None Delusions: Not Present Thought Process: Evasive Thought Content: positive for Circumstantial Judgement: Fair Diagnostics Vital Signs (24Hr): Vital Signs - 24 hr 04/12/22 18:00 04/13/22 08:11 Temperature 98 F 96.3 F L Pulse Rate 65 65 Respiratory Rate 16 17 Blood Pressure 113/56 L 120/70 Pulse Oximetry 97 97 Oxygen Delivery Method Room Air Room Air BMI result Body Mass Index 21.6 Medications Medications Current Medications Acetaminophen (Acetaminophen 325 Mg Tablet) 650 mg PO Q6H PRN PRN Reason: Headache/Pain Mild Scale (1-3) Last Admin: 04/11/22 20:10 Dose: 650 mg Al Hydroxide/Mg Hydroxide (Magnesium Hydrox/Alum Hydrox 30 Ml Oral.Susp) 30 ml PO Q6H PRN PRN Reason: Heartburn/Nausea Aspirin (Aspirin Enteric Coated 81 Mg Tablet.Dr) 81 mg PO DAILY [facility] Last Admin: 04/13/22 08:04 Dose: 81 mg Atorvastatin Calcium (Atorvastatin Calcium 80 Mg Tablet) 80 mg PO DAILY [facility] Last Admin: 04/13/22 08:04 Dose: 80 mg Docusate Sodium (Docusate Sodium 100 Mg Capsule) 100 mg PO BID [facility] Last Admin: 04/13/22 08:04 Dose: 100 mg Donepezil HCl (Donepezil Hcl 5 Mg Tablet) 5 mg PO BEDTIME [facility] Last Admin: 04/12/22 20:42 Dose: 5 mg Levofloxacin (Levofloxacin 500 Mg Tablet) 500 mg PO DAILY [facility] Last Admin: 04/13/22 08:04 Dose: 500 mg Magnesium Hydroxide (Milk Of Magnesia 30 Ml Oral.Susp) 30 ml PO DAILY PRN PRN Reason: Constipation Last Admin: 04/08/22 18:33 Dose: 30 ml Metronidazole (Metronidazole 500 Mg Tablet) 500 mg PO TID [facility] Last Admin: 04/13/22 08:03 Dose: 500 mg Olanzapine (Olanzapine 5 Mg Tablet) 5 mg PO DAILY [facility] Last Admin: 04/13/22 08:03 Dose: 5 mg Paroxetine HCl (Paroxetine Hcl 20 Mg Tablet) 20 mg PO DAILY [facility] Last Admin: 04/13/22 08:04 Dose: 20 mg Polyethylene Glycol (Polyethylene Glycol 3350 17 Gm Powd.Pack) 17 gm PO DAILY [facility] Last Admin: 04/13/22 08:05 Dose: 17 gm Quetiapine Fumarate (Quetiapine Fumarate 25 Mg Tablet) 25 mg PO TID [facility] Last Admin: 04/13/22 08:04 Dose: 25 mg Quetiapine Fumarate (Quetiapine Fumarate 25 Mg Tablet) 25 mg PO Q6H PRN PRN Reason: agitation Last Admin: 04/12/22 13:44 Dose: 25 mg Senna (Sennosides 8.6 Mg Tablet) 8.6 mg PO BEDTIME [facility] Last Admin: 04/12/22 20:43 Dose: 8.6 mg Trazodone HCl (Trazodone Hcl 50 Mg Tablet) 50 mg PO BEDTIME PRN PRN Reason: Insomnia Last Admin: 04/11/22 21:57 Dose: 50 mg Vitamin D (Cholecalciferol (Vitamin D3) 10 Mcg Tablet) 20 mcg PO DAILY [facility] Last Admin: 04/13/22 08:03 Dose: 20 mcg Allergies Allergies Allergy/AdvReac Type Severity Reaction Status Date / Time No Known Allergies Allergy Verified 04/05/22 21:25 Assessment & Plan Assessment & Plan (1) Dementia: Status: Acute Code(s): F03.90 - Unspecified dementia without behavioral disturbance (2) Posttraumatic stress disorder: Status: Acute Code(s): F43.10 - Post-traumatic stress disorder, unspecified Plan The patient is a 71-year-old female with a long history of posttraumatic stress disorder, depression and panic attacks, now with a new diagnosis of dementia. She was referred to the emergency room after she disclosed passive suicidal thoughts and disorganized behavior. Plan 1. Continue with the same treatment right now, to not discontinue Seroquel or Zyprexa for the next day. 2. Continue with Paxil up to 20 mg today I spent ___20___ minutes with the patient and/or on the patient floor today, greater than?50% of which was spent counseling/coordinating care. Reason for contiued inpatient stay Substantial Risk for: inability to function, rapid decompensation and med/psych decompensation
[2022-04-13 18:00] VITALS: BP 136/64; PULSE 64; RESP 16; TEMP 36.8; O2SAT 97
[2022-04-13] MEDS: Sennosides 8.6 MG TABLET PO (20:01)
[2022-04-13] MEDS: Donepezil HCl 5 MG TABLET PO (20:01)
[2022-04-14 07:30] VITALS: BP 130/65; PULSE 67; RESP 17; TEMP 36.4; O2SAT 96
[2022-04-14] MEDS: Atorvastatin Calcium 80 MG TABLET PO (09:51)
[2022-04-14] MEDS: levoFLOXacin 500 MG TABLET PO (09:51)
[2022-04-14] MEDS: metroNIDAZOLE 500 MG TABLET PO ×3 (09:51→20:20)
[2022-04-14] MEDS: OLANZapine 5 MG TABLET PO (09:51)
[2022-04-14] MEDS: PARoxetine HCL 20 MG TABLET PO (09:51)
[2022-04-14] MEDS: Aspirin Enteric Coated 81 MG TABLET.DR PO (09:51)
[2022-04-14] MEDS: Cholecalciferol (Vitamin D3) 10 MCG TABLET 20 MCG PO (09:51)
[2022-04-14] MEDS: Docusate Sodium 100 MG CAPSULE PO ×2 (09:51→20:20)
[2022-04-14] MEDS: QUEtiapine Fumarate 25 MG TABLET PO ×3 (09:51→20:21)
[2022-04-14] MEDS: polyethylene glycoL 3350 17 GM POWD.PACK PO (10:04)
--- NOTE | 2022-04-14 11:12 | P.PNPSI_ITS ---
Subjective Subjective Date of Service: 04/14/22 Reason For Visit: Depression, PTSD, symptoms of psychosis Subjective Notes: Conditional Voluntary Interim History: The nursing staff reported the patient has been anxious about discharge. She slept well last night. On interview the patient reported that she is feeling not well and she is anxious and she has an somatic complaints such as paresthesias and abdominal pain. According to the chart, the patient is very well known for having somatic complaints whenever she has to anxious. No safety concerns. Mental Status Exam Mental Status Exam Patient Appearance: Well Grooomed Patient Orientation: Person and Situation Level of Consciousness: Awake Patient Behavior: Cooperative Mood Description: Nervous Affect Description: Constricted Patient Cognition Impaired: Yes Ability to Follow Directions: Good Speech Pattern: Clear Hallucinations: None Delusions: Not Present Thought Process: Distracted Thought Content: positive for Circumstantial Judgement: Good Diagnostics Vital Signs (24Hr): Vital Signs - 24 hr 04/13/22 18:00 04/14/22 07:30 Temperature 98.2 F 97.6 F Pulse Rate 64 67 Respiratory Rate 16 17 Blood Pressure 136/64 130/65 Pulse Oximetry 97 96 Oxygen Delivery Method Room Air Room Air BMI result Body Mass Index 21.6 Medications Medications Current Medications Acetaminophen (Acetaminophen 325 Mg Tablet) 650 mg PO Q6H PRN PRN Reason: Headache/Pain Mild Scale (1-3) Last Admin: 04/11/22 20:10 Dose: 650 mg Al Hydroxide/Mg Hydroxide (Magnesium Hydrox/Alum Hydrox 30 Ml Oral.Susp) 30 ml PO Q6H PRN PRN Reason: Heartburn/Nausea Aspirin (Aspirin Enteric Coated 81 Mg Tablet.) 81 mg PO DAILY [facility] Last Admin: 04/14/22 09:51 Dose: 81 mg Atorvastatin Calcium (Atorvastatin Calcium 80 Mg Tablet) 80 mg PO DAILY [facility] Last Admin: 04/14/22 09:51 Dose: 80 mg Docusate Sodium (Docusate Sodium 100 Mg Capsule) 100 mg PO BID [facility] Last Admin: 04/14/22 09:51 Dose: 100 mg Donepezil HCl (Donepezil Hcl 5 Mg Tablet) 5 mg PO BEDTIME [facility] Last Admin: 04/13/22 20:01 Dose: 5 mg Levofloxacin (Levofloxacin 500 Mg Tablet) 500 mg PO DAILY [facility] Last Admin: 04/14/22 09:51 Dose: 500 mg Magnesium Hydroxide (Milk Of Magnesia 30 Ml Oral.Susp) 30 ml PO DAILY PRN PRN Reason: Constipation Last Admin: 04/08/22 18:33 Dose: 30 ml Metronidazole (Metronidazole 500 Mg Tablet) 500 mg PO TID [facility] Last Admin: 04/14/22 09:51 Dose: 500 mg Olanzapine (Olanzapine 5 Mg Tablet) 5 mg PO DAILY [facility] Last Admin: 04/14/22 09:51 Dose: 5 mg Paroxetine HCl (Paroxetine Hcl 20 Mg Tablet) 20 mg PO DAILY [facility] Last Admin: 04/14/22 09:51 Dose: 20 mg Polyethylene Glycol (Polyethylene Glycol 3350 17 Gm Powd.Pack) 17 gm PO DAILY [facility] Last Admin: 04/14/22 10:04 Dose: 17 gm Quetiapine Fumarate (Quetiapine Fumarate 25 Mg Tablet) 25 mg PO TID [facility] Last Admin: 04/14/22 09:51 Dose: 25 mg Quetiapine Fumarate (Quetiapine Fumarate 25 Mg Tablet) 25 mg PO Q6H PRN PRN Reason: agitation Last Admin: 04/12/22 13:44 Dose: 25 mg Senna (Sennosides 8.6 Mg Tablet) 8.6 mg PO BEDTIME [facility] Last Admin: 04/13/22 20:01 Dose: 8.6 mg Trazodone HCl (Trazodone Hcl 50 Mg Tablet) 50 mg PO BEDTIME PRN PRN Reason: Insomnia Last Admin: 04/11/22 21:57 Dose: 50 mg Vitamin D (Cholecalciferol (Vitamin D3) 10 Mcg Tablet) 20 mcg PO DAILY [facility] Last Admin: 04/14/22 09:51 Dose: 20 mcg Allergies Allergies Allergy/AdvReac Type Severity Reaction Status Date / Time No Known Allergies Allergy Verified 04/05/22 21:25 Assessment & Plan Assessment & Plan (1) Dementia: Status: Acute Code(s): F03.90 - Unspecified dementia without behavioral disturbance (2) Posttraumatic stress disorder: Status: Acute Code(s): F43.10 - Post-traumatic stress disorder, unspecified Plan The patient is a 71-year-old female with a long history of posttraumatic stress disorder, depression and panic attacks, now with a new diagnosis of dementia. She was referred to the emergency room after she disclosed passive suicidal thoughts and disorganized behavior. Plan 1. Continue with the same treatment right now, to not discontinue Seroquel or Zyprexa for the next day. 2. Continue with Paxil up to 20 mg today I spent ___20___ minutes with the patient and/or on the patient floor today, greater than?50% of which was spent counseling/coordinating care. Reason for contiued inpatient stay Substantial Risk for: inability to function, rapid decompensation and med/psych decompensation
--- NOTE | 2022-04-14 11:25 | P.PNPSI_ITS ---
Subjective Subjective Date of Service: 04/14/22 Reason For Visit: Depression, PTSD, symptoms of psychosis Subjective Notes: Conditional Voluntary Diagnostics Vital Signs (24Hr): Vital Signs - 24 hr 04/13/22 18:00 04/14/22 07:30 Temperature 98.2 F 97.6 F Pulse Rate 64 67 Respiratory Rate 16 17 Blood Pressure 136/64 130/65 Pulse Oximetry 97 96 Oxygen Delivery Method Room Air Room Air BMI result Body Mass Index 21.6 Medications Medications Current Medications Acetaminophen (Acetaminophen 325 Mg Tablet) 650 mg PO Q6H PRN PRN Reason: Headache/Pain Mild Scale (1-3) Last Admin: 04/11/22 20:10 Dose: 650 mg Al Hydroxide/Mg Hydroxide (Magnesium Hydrox/Alum Hydrox 30 Ml Oral.Susp) 30 ml PO Q6H PRN PRN Reason: Heartburn/Nausea Aspirin (Aspirin Enteric Coated 81 Mg Tablet.Dr) 81 mg PO DAILY [facility] Last Admin: 04/14/22 09:51 Dose: 81 mg Atorvastatin Calcium (Atorvastatin Calcium 80 Mg Tablet) 80 mg PO DAILY [facility] Last Admin: 04/14/22 09:51 Dose: 80 mg Docusate Sodium (Docusate Sodium 100 Mg Capsule) 100 mg PO BID [facility] Last Admin: 04/14/22 09:51 Dose: 100 mg Donepezil HCl (Donepezil Hcl 5 Mg Tablet) 5 mg PO BEDTIME [facility] Last Admin: 04/13/22 20:01 Dose: 5 mg Levofloxacin (Levofloxacin 500 Mg Tablet) 500 mg PO DAILY [facility] Last Admin: 04/14/22 09:51 Dose: 500 mg Magnesium Hydroxide (Milk Of Magnesia 30 Ml Oral.Susp) 30 ml PO DAILY PRN PRN Reason: Constipation Last Admin: 04/08/22 18:33 Dose: 30 ml Metronidazole (Metronidazole 500 Mg Tablet) 500 mg PO TID [facility] Last Admin: 04/14/22 09:51 Dose: 500 mg Olanzapine (Olanzapine 5 Mg Tablet) 5 mg PO DAILY [facility] Last Admin: 04/14/22 09:51 Dose: 5 mg Paroxetine HCl (Paroxetine Hcl 20 Mg Tablet) 20 mg PO DAILY [facility] Last Admin: 04/14/22 09:51 Dose: 20 mg Polyethylene Glycol (Polyethylene Glycol 3350 17 Gm Powd.Pack) 17 gm PO DAILY [facility] Last Admin: 04/14/22 10:04 Dose: 17 gm Quetiapine Fumarate (Quetiapine Fumarate 25 Mg Tablet) 25 mg PO TID [facility] Last Admin: 04/14/22 09:51 Dose: 25 mg Quetiapine Fumarate (Quetiapine Fumarate 25 Mg Tablet) 25 mg PO Q6H PRN PRN Reason: agitation Last Admin: 04/12/22 13:44 Dose: 25 mg Senna (Sennosides 8.6 Mg Tablet) 8.6 mg PO BEDTIME [facility] Last Admin: 04/13/22 20:01 Dose: 8.6 mg Trazodone HCl (Trazodone Hcl 50 Mg Tablet) 50 mg PO BEDTIME PRN PRN Reason: Insomnia Last Admin: 04/11/22 21:57 Dose: 50 mg Vitamin D (Cholecalciferol (Vitamin D3) 10 Mcg Tablet) 20 mcg PO DAILY [facility] Last Admin: 04/14/22 09:51 Dose: 20 mcg Allergies Allergies Allergy/AdvReac Type Severity Reaction Status Date / Time No Known Allergies Allergy Verified 04/05/22 21:25 Assessment & Plan Assessment & Plan (1) Dementia: Status: Acute Code(s): F03.90 - Unspecified dementia without behavioral disturbance (2) Posttraumatic stress disorder: Status: Acute Code(s): F43.10 - Post-traumatic stress disorder, unspecified Plan The patient is a 71-year-old female with a long history of posttraumatic stress disorder, depression and panic attacks, now with a new diagnosis of dementia. She was referred to the emergency room after she disclosed passive suicidal thoughts and disorganized behavior. Plan 1. Continue with the same treatment right now, to not discontinue Seroquel or Zyprexa for the next day. 2. Continue with Paxil up to 20 mg today I spent minutes with the patient and/or on the patient floor today, greater than?50% of which was spent counseling/coordinating care.
[2022-04-14 18:00] VITALS: BP 119/55; PULSE 66; RESP 16; TEMP 36.9; O2SAT 97
[2022-04-14] MEDS: Sennosides 8.6 MG TABLET PO (20:20)
[2022-04-14] MEDS: Donepezil HCl 5 MG TABLET PO (20:20)
[2022-04-15] MEDS: traZODone HCL 50 MG TABLET PO (00:07)
[2022-04-15 07:00] VITALS: BP 112/53; PULSE 77; RESP 16; TEMP 36.4; O2SAT 95
--- NOTE | 2022-04-15 08:04 | PM.PSYDC ---
DS: Providers Provider Date of Service: 04/15/22 Date of admission: 04/05/22 20:48 Date of discharge: 04/15/22 Primary care physician: Remedios Gallardo MD Consults: 04/06/22 02:11 Consult to Hospitalist Routine Consulting Provider: Hospitalist Reason For Exam: New admit from [facility]. DS: Diagnosis Discharge Diagnosis (1) Dementia: Status: Acute (2) Posttraumatic stress disorder: Status: Acute (3) Major depressive disorder: Status: Acute DS: Medications Discharge Medications Home Medications: Home Medications Medication Instructions Recorded Confirmed aspirin 81 mg capsule,delayed 81 mg PO DAILY 04/05/22 04/05/22 release cholecalciferol (vitamin D3) 800 unit PO DAILY 04/05/22 04/05/22 ciprofloxacin HCl 500 mg PO BIDWM 04/05/22 04/05/22 docusate sodium 100 mg PO BID 04/05/22 04/05/22 lorazepam 0.5 mg PO Q6H PRN Anxiety 04/05/22 04/05/22 metronidazole 500 mg PO Q8H 04/05/22 04/05/22 olanzapine 5 mg tablet (Zyprexa) 5 mg PO DAILY 04/05/22 04/05/22 polyethylene glycol 3350 17 gram 17 g PO DAILY 04/05/22 04/05/22 oral powder packet (Miralax) quetiapine 25 mg tablet (Seroquel) 25 mg PO TID 04/05/22 04/05/22 rosuvastatin 20 mg tablet (Crestor) 20 mg PO DAILY 04/05/22 04/05/22 senna 8.6 mg PO BEDTIME 04/05/22 04/05/22 Mental Status Exam Mental Status Exam Patient Appearance: Well Grooomed and Appropriate Patient Orientation: Person, Place and Situation Level of Consciousness: Awake Patient Behavior: Cooperative Mood Description: Constricted Affect Description: Calm Patient Cognition Impaired: Yes Ability to Follow Directions: Good Speech Pattern: Clear Hallucinations: None Delusions: Not Present Thought Process: Distracted Thought Content: positive for Circumstantial Judgement: Fair DS: Summary Hospital Course Hospital Course: The patient was admitted for exacerbation of depressive symptoms and increased anxiety and paranoia. Please see the HPI of the admission note for further details. On intake, we have very little collateral information but apparently the patient had been admitted several times in the last year due to episodes of panic attacks, anxiety and disorganized behavior. We could contact her daughter who provided collateral information and stated that she had been in and out of emergency rooms and different inpatient units but she had been poorly compliant with treatment. On admission, the patient presented with attention seeking behavior, episodes of anxiety, somatization, and dysphoria. Also, it was clear that the patient have a cognitive decline with poor short-term memory and poor attention span. We continue the Seroquel 25 mg p.o. t.i.d. and Zyprexa at night that was prescribed at [facility]. The patient have had several trials with different neuroleptics and apparently this combination had been the best. While admitted, we observed the patient was very attention seeking and anxious. She had some depressive symptoms elicited by depressed mood, anhedonia, lack of energy and feelings of hopelessness. We discussed risk, benefits, side-effects and alternatives and she agreed to start Paxil titrated up to 20 mg p.o. daily. The patient started to improve, she was able to participate in some groups and her anxiety improved, even though, she was still chronically anxious. The occupational therapist and the other staff did a cognitive assessment and and Shreyas cognitive test and she scored low. Her daughter, who was involved, agreed to transfer her to assisted living facility. The patient was in agreement of this plan. Since there were no safety concerns discharge planning was discussed. Time spent discussing smoking cessation with patient: 3 to 10 minutes Status at Discharge Cognitive/behavioral status at discharge: Impaired cognition at baseline Functional status at discharge: independent ambulation Overall status at discharge: patient is back to baseline Time Spent with Patient Time attestation: Total time spent providing and/or coordinating discharge services: Discharge Plan Discharge Patient Disposition: Xfer Other Discharge Diagnosis: posttraumatic stress disorder. Depression Dementia Referrals: Loly Upton (Therapist at [facility]) [Other] - 04/21/22 11:00 am (Therapy appointment at 11am on 04/21/22) Dr. Home Hicks (Psychiatrist at [facility]) [Other] - 05/03/22 1:30 pm (Psychiatrist appointment on 05/03/22 at 1:30 PM IN-OFFICE) Remedios Gallardo MD [Primary Care Provider] - 1 Week Discharge Medications: New donepezil 5 mg Tablet 5 mg PO BEDTIME 30 Days Qty: 30 0RF trazodone 50 mg Tablet 50 mg PO BEDTIME PRN (Reason: Insomnia) 30 Days Qty: 30 0RF aspirin 81 mg Tablet,Delayed Release (Dr/Ec) 81 mg PO DAILY 30 Days Qty: 30 0RF paroxetine HCl 20 mg Tablet 20 mg PO DAILY 30 Days Qty: 30 0RF Continued quetiapine [Seroquel] 25 mg Tablet 25 mg PO TID 30 Days Qty: 90 0RF polyethylene glycol 3350 [Miralax] 17 gram Powder In Packet 17 g PO DAILY 30 Days Qty: 30 0RF olanzapine [Zyprexa] 5 mg Tablet 5 mg PO DAILY 30 Days Qty: 30 0RF rosuvastatin [Crestor] 20 mg Tablet 20 mg PO DAILY 30 Days Qty: 30 0RF cholecalciferol (vitamin D3) 400 unit tablet 800 unit PO DAILY 30 Days Qty: 30 0RF ciprofloxacin HCl 500 mg tablet 500 mg PO BIDWM 14 Days Qty: 28 0RF Rx Instructions: Take 1 tablet by mouth 2 times daily for 10 doses docusate sodium 100 mg capsule 100 mg PO BID 30 Days Qty: 60 0RF metronidazole 500 mg tablet 500 mg PO Q8H 14 Days Qty: 42 0RF Rx Instructions: Take 1 tablet by mouth every 8 hours for 9 doses senna 8.6 mg tablet 8.6 mg PO BEDTIME 30 Days Qty: 30 0RF Discontinued aspirin 81 mg Capsule,Delayed Release(Dr/Ec) 81 mg PO DAILY lorazepam 0.5 mg tablet 0.5 mg PO Q6H PRN (Reason: Anxiety) Discharge Orders: Discharge Order (Routine); Ordered 04/15/22 Ordered By: Arya Hernandez Diet: Regular diet Activity on Discharge: As tolerated Stand Alone Forms: Patient Portal Discharge page Care Plan Goals: Care plans achieved in this admission Health Concerns: continue care by primary care physician Plan of Treatment: continue treatment as an outpatient Assessment: elderly female with a long history of depression, PTSD and probably cluster B traits admitted for exacerbation of symptoms in the context of noncompliance and exacerbation of dementia. Currently safe to be discharged in the community
[2022-04-15] MEDS: PARoxetine HCL 20 MG TABLET PO (08:08)
[2022-04-15] MEDS: Docusate Sodium 100 MG CAPSULE PO (08:08)
[2022-04-15] MEDS: metroNIDAZOLE 500 MG TABLET PO (08:08)
[2022-04-15] MEDS: QUEtiapine Fumarate 25 MG TABLET PO (08:08)
[2022-04-15] MEDS: Aspirin Enteric Coated 81 MG TABLET.DR PO (08:08)
[2022-04-15] MEDS: OLANZapine 5 MG TABLET PO (08:08)
[2022-04-15] MEDS: levoFLOXacin 500 MG TABLET PO (08:08)
[2022-04-15] MEDS: Atorvastatin Calcium 80 MG TABLET PO (08:08)
[2022-04-15] MEDS: polyethylene glycoL 3350 17 GM POWD.PACK PO (08:08)
[2022-04-15] MEDS: Cholecalciferol (Vitamin D3) 10 MCG TABLET 20 MCG PO (08:08)
--- NOTE | 2022-04-15 12:04 | PC.NURSE ---
Pt. was d/c off the unit at 1130 at which point her son-in-law, Cheng was waiting for her. Pt. stated that she is ready and willing to d/c. She ambulated off the unit independently, hemodynamically stable upon d/c. Pt. denied any complaints and any additional questions. All questions answered previous to d/c. Pt. was provided with all of her belongings as well as her d/c paperwork.
== END 2022-04-15 11:32 | disposition other institution (70) | DRG 881 ==
PROVIDERS: Admitting Provider Psychiatry & Neurology Psychiatry; PCP Family Medicine; Visit Provider Psychiatry & Neurology Psychiatry
DX: F32.9 Major depressive disorder, single episode, unspecified (principal); F05 Delirium due to known physiological condition; F43.10 Post-traumatic stress disorder, unspecified; F03.90 Unspecified dementia, unspecified severity, without behavioral disturbance, psychotic disturbance, mood disturbance, and anxiety; Z62.810 Personal history of physical and sexual abuse in childhood; Z79.82 Long term (current) use of aspirin; Z79.899 Other long term (current) drug therapy
CPT/HCPCS: 93005